=== PATIENT | male | born 1985 | race Caucasian/White ===

== ENCOUNTER 2019-07-06 05:32 | Emergency (ER) | payer SELFPAY ==
[~2019-07-06] VITALS: Ht 172.7 cm; Wt 85.0 kg
[2019-07-06] MEDS ORDERED: SODIUM CHLORIDE 0.9% 1,000 ML IV ONE (06:09)
[2019-07-06] MEDS ORDERED: MORPHINE SULFATE 4 MG/ML CPJ (NOT FOR IM USE) IV STA (06:09)
[2019-07-06] MEDS ORDERED: FAMOTIDINE 20MG/2ML VIAL IV STA (06:09)
[2019-07-06] MEDS ORDERED: ONDANSETRON HCL 4MG/2ML INJ IV STA (06:09)
[2019-07-06 06:33] LABS: BASOPHILS % 3.7 % (0.0-2.0); CHLORIDE 103 mEq/L (98-107); EOSINOPHILS % 1.7 % (0.0-5.0); HEMATOCRIT. 37.3 % (42.0-52.0); HEMOGLOBIN. 12.4 g/dL (14.0-18.0); LYMPHOCYTES % 29.5 % (20.0-50.0); MEAN CORPUSCULAR HEMOGLOBIN 27.8 pg (28.0-32.0); MEAN CORPUSCULAR VOLUME 83.6 fL (80.0-94.0); MONOCYTES % 7.6 % (2.0-8.0); NEUTROPHILS % 57.5 % (40.0-76.0); PLATELET 430 x1000/uL (130-400); RED BLOOD CELL COUNT 4.46 mill/uL (4.7-6.1); RED CELL DISTRIBUTION WIDTH 18.5 % (11.6-14.6)
[2019-07-06 07:01] LABS: INR 1.1; PROTHROMBIN TIME 11.2 sec (9.6-11.0)
[2019-07-06] MEDS ORDERED: MORPHINE SULFATE 4 MG/ML CPJ (NOT FOR IM USE) IV ONE (07:15)
[2019-07-06 07:30] VITALS: BP 126/84
== END 2019-07-06 07:50 | disposition home or self-care (01) ==
LOC: ER 05:32
DX: R10.0 Acute abdomen (principal); I10 Essential (primary) hypertension; E11.9 Type 2 diabetes mellitus without complications
CPT/HCPCS: 36415; 74176; 80053; 82962; 83690; 85025; 85610; 96361; 96374; 96375; 99284; J2270; J2405; J3490; J7030